=== PATIENT | female | born 1970 | race Two or more races ===

== ENCOUNTER → 2021-09-01 | Outpatient (CLI) | payer SELFPAY ==
[2021-09-05 17:19] LABS: HPV APTIMA, High Risk Negative (Negative)
== END | disposition home or self-care (01) ==
LOC: LABSPEC 12:23
PROVIDERS: Visit Provider Obstetrics & Gynecology
DX: Z12.4 Encounter for screening for malignant neoplasm of cervix (principal)
CPT/HCPCS: 87624; 88175; G0145

== ENCOUNTER 2024-02-10 08:00 | Outpatient (RCR) | payer SELFPAY ==
--- NOTE | 2024-02-10 10:10 | BH.SGPN.GN ---
Behaviors/Verbalizations/Mental Status: [] Eye contact is good. Motor activity is appropriate. Appearance is casual. Speech is Appropriate. Mood is depressed and anxious. Affect is congruent. Thoughts are linear and logical. No evidence of psychosis. Client Response/Progress/Benefit: [] Pt did well to participate in activity and was engaged and attentive during psychoeducation and interactive discussion on coping skills, why people use unhealthy coping skills, how to replace unhealthy coping skills, and internal vs external coping skills. Attentive as peers came up with list of negative coping skills including not asking for help, avoidance, isolating, sleeping, shopping, substance use, and several others. Pt stated she has used isolation and procrastination as an unhealthy coping skill. Recognizes this makes things worse. Stated she has been working on challenging herself to use opposite action. Group discussed the effects of how maladaptive coping skills can impact mental health in a negative way. Benefited from increased understanding of unhealthy coping skills and the need for developing healthy internal and external coping skills. Will continue in IOP to promote healthy coping skills, improve mood stability, and prevent decompensation. Narrative Note: []
--- NOTE | 2024-02-10 11:10 | BH.SGPN.GN ---
Behaviors/Verbalizations/Mental Status: []Pt alert and oriented, casually dressed and groomed. Eye contact good. Motor activity appropriate. Speech within normal limits. Affect congruent, mood depressed. Thoughts linear, logical, no signs of hallucinations or delusions. Client Response/Progress/Benefit: [] Pt responded well to session, taking notes and contributing when prompted. Group discussed the different categories of coping skills which included distraction, emotional release, grounding, self-love, and thought challenging. Pt participated in creating a coping skills ?menu? from the different categories of coping skills. Pt's coping skill menu included: opposite action, catching distortions, connecting in the moment, and exploring new hobbies. Appeared to benefit from increasing repertoire of healthy coping skills. Will continue IOP to prevent decompensation, improve daily functioning, and increase distress tolerance skills. Narrative Note: []
--- NOTE | 2024-02-10 15:51 | BH.COMM ---
Communication Note Communication with Client Communication Note: Met with patient to complete initial paperwork and risk assessment. Reviewed pre-admission intake. No significant changes. Completed [place] Suicide Screening. low to mild risk. Denies suicidal ideation, plan, or intent. Denies hx of attempts or self-harming behavior. No active SI, plan, or intent. Survival ambivalence noted. Protective factors noted as goals for the future and pt's children. Pt reports future orientation. Consulted with Dr. Greene with plan to admit to IOP with dx F33.2
--- NOTE | 2024-02-16 09:05 | BH.SGPN.GN ---
Behaviors/Verbalizations/Mental Status: [] Client alert and oriented, casual appearance. Eye contact good. Motor activity appropriate. Speech within normal limits. Affect congruent, mood euthymic. Thoughts linear, logical, no signs of hallucinations or delusions. Reviewed client's symptom tracker, no risk for suicidal ideation, plan, or intent. Client Response/Progress/Benefit: [] Client responded well to session AEB listening to others and sharing thoughts/feelings. Per daily symptom tracker client reported a 1/5, with 5 being severe, for depression and a 0/5 for anxiety. Client reported mental positive as getting her laundry done yesterday. Client stated additional mental positive as being able to get up early in order to go to work each morning. Appeared to benefit from support from peers. Client shared current stressor as her marriage. Client stated this has been an ongoing stressor for most of their marriage. Will continue IOP tx to improve daily functioning, increase healthy coping skills, and prevent decompensation. Narrative Note: []
--- NOTE | 2024-02-16 10:10 | BH.SGPN.GN ---
Behaviors/Verbalizations/Mental Status: []Pt alert and oriented, neatly dressed and groomed. Eye contact good. Motor activity appropriate. Speech within normal limits. Affect congruent, mood depressed. Thoughts linear, logical, no signs of hallucinations or delusions. Client Response/Progress/Benefit: [] Pt was an active participant in group discussion. Attentive during psychoeducation on the CBT [place] (Thoughts, Behaviors, Emotions). Engaged in group discussion on how thoughts and behaviors can contribute to maintaining adverse feelings, such as depression, anxiety, and irritability. Completed worksheet in which pt identified a thought that is keeping them stuck or is in obstacle to increased mental wellness. The thought that pt identified were ?I make things harder on my family.? Shared this maintains depression and anxiety cycles. Pt benefited from increased awareness of the basis of CBT therapy as well as specific thoughts that are impacting pt's progress. Will continue in IOP to prevent decompensation, improve daily functioning, and increase self-compassion. Narrative Note: []
--- NOTE | 2024-02-16 10:45 | BH.NA_ITS ---
Physical Data Vital Signs Pulse Rate: 72 Blood Pressure: 141/81 Height/Weight Height: 1.63 m Weight:: 113.398 kg Weight in Pounds: 250.0 lbs Current Medication Compliance Medication Compliance Do you take your medication as prescribed?: Yes Nutritional History Appetite Nutritional Instructions: Describe your appetite:: Good Additional nutritional information:: Client states she has had some recent weigh t gain due to increased appetite. Functional Assessment Sleep Pattern Describe any problems with sleeping: Client states she sleeps about 4-6 hours per night. Medical Problems/History Metabolic Conditions Metabolic: Hypothyroidism Pain Assessment Do you have acute or chronic pain?: No Surgical History Surgical History Have you had any surgeries? If so, list type and date:: Yes (anant) Substance Abuse Substance Abuse Please describe substance abuse in the last 30 days:: Client denies alcohol, tobacco or substance use. Client states she drinks 1-3 cups of coffee per day. Mental Status Summary Mental Status Significant Findings/Observations on Appearance and Mood:: Client is alert and oriented x 4. Client is casually groomed with good hygiene. Client is cooperative with assessment. Client makes good eye contact. Client's speech has regular rate and volume. Client has a restricted affect. Client makes logical associations and has normal processing. Client denies delusions/hallucinations. Client denies current SI, but does admit to some SI in the past and some survival ambivalence. Suicide Assessment Suicidal Ideation Are you currently or have you been suicidal in the past?: Yes Suicidal Intentional Rating Scale (SIRS): Suicidal thoughts (past) Physician Notification Past Psychiatric History MH Treatment Hx Past Psychiatric Medications:: Prozac, Wellbutrin, Buspar Age of first mental health symptoms: Client states she was on antidepressants for some time in her 20's, and started taking them again in her 40's until present. Describe (age, circumstance, etc) any past hospitalizations: None. Current providers for mental health treatment (counselor, psychiatrist, employment case manager, etc.): Cora Landin CNP at [facility] for psychiatry Fall Risk Assessment Age Age: Less than 60 Mental Status Mental Status: Willing & able to ask for assistance when needed Physical Status Physical Status: No problems Impairments Impairments: None Elimination Elimination: Continent AND independent Gait or Balance Gait or Balance: Walks independently Hx of Falls History of falls in the past 6 months: No known history Medications/Substances Psychotropics:: Antidepressants Medications/substances used within the past 24 hours or ordered to administer: 1-2 of the medications/substances listed above Total Score Total Points:: 1 RN Summary of Impressions Level of Care How do the client's current symptoms and functional deficits support need for this level of care?: Client was referred to IOP by outpatient psychiatry provider for depression. Client reports having some panic attacks at night recently, the last one being in the last week. Client also reports some anhedonia and decreased motivation. Client states her biggest stressor is her marriage which she states has not been a happy marriage from the start 32 years ago. Client reports feeling like he won't let me leave. Client does report some survival ambivalence. Client denies SI at this time. IOP will promote gains and prevent further decompensation while providing social support and skills training.
[2024-02-16 11:52] VITALS: BP 141/81; PULSE 72
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
--- NOTE | 2024-02-16 12:33 | BH.DR.ITP ---
Initial Treatment Plan Patient Information Visit Information: ADMISSION DATE: EXPECTED LOS: 4-6 weeks Problems/Symptoms Problem #1:: Depression Symptom:: Sadness, hopelessness, worthlessness, anhedonia, biological disruption of sleep, low energy, decreased concentration, passive thoughts of , recent passive suicidal ideation Problem #2:: Anxiety Symptom:: Worry, history of panic attacks, rumination
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
--- NOTE | 2024-02-16 14:45 | BH.MTP ---
Master Treatment Plan Patient Information Program Physician:: Dr. Meaghan Rubalcava Primary Therapist:: Carlita BETANCOURT Psychiatric Diagnoses Psychiatric Diagnoses:: Major depressive disorder, recurrent, severe without psychosis F 33.2; Generalized anxiety disorder Diagnosis Code(s):: F 33.2 Estimated LOS Estimated LOS (in weeks):: 6 Problem/Goal #1 Problem/Goal #1 Stated Goal:: Pt will decrease depressive symptoms, inappropriate guilt, worthlessness, and negative self-talk. Description of Barriers: Pt reports she is unhappy in her marriage and has been for many years, but divorce is not an option. Pt ruminates negatively, has excessive guilt, and has limited support. Additionally, pt has an inconsistent schedule, so it may be challenging for pt to attend [facility] regularly. Functional Impact: Pt is a 53 year-old female with a history of MDD and CHRISTEN who was referred to [facility] by her outpatient psychology lecturer at [facility] for worsening depression. Pt reports her symptoms have been worsening for the past five years due to conflicts within her marriage. Pt feels like I have no freedom to be me and she reports having regret daily. At admission, pt endorses a depressed mood, crying spells, ruminations, erratic appetite, low energy, low motivation, hopelessness, and worthlessness. Pt also endorses thoughts of with passive SI and isolation. Pt's symptoms have been impacting her ability to function at her baseline. Goal Relevant Strengths/Supports: Pt is connected with outpatient counseling and she has a job she enjoys. Objectives Objective #1: Stated Objective: Pt will learn and utilize 2-3 healthy coping strategies to better manage depressive symptoms as shown by a decrease of DMS-5 symptoms for depression. Interventions: Through group and individual sessions, therapist will help pt identify triggers and warning signs of depression and guilt including emotional, physical, and behavioral changes. Therapist will teach pt various coping skills to manage symptoms and give pt tangible resources to use to regulate emotions. Therapist will use cognitive restructuring techniques and help pt gain awareness of negative thoughts that reinforce guilt and depression. Therapist will provide psychoeducation on maintenance cycles and help pt learn ways to break unhealthy maintenance cycles. Therapist will help pt incorporate behavioral activation and assist pt in setting SMART goals. Discharge Criteria: Pt will have met this goal when can report learning and using at least 2 coping skills to manage depressive symptoms and reduce isolation. Additionally, pt will have met this goal when pt's DSM-5 scores for depression decrease. Target Date: 03/23/24 Review Date: 03/02/24 Status: open Objective #2: Stated Objective: Pt will identify at least 2-3 negative self-talk messages used to reinforce negative core beliefs, worthlessness, and isolation and replace thoughts with balanced, realistic messages. Interventions: Therapist will help pt identify distorted, negative beliefs about self and replace with more realistic, affirmative messages. Therapist will use CBT and DBT to help pt increase insight to the connection between thoughts, emotions, and behaviors. Therapist will encourage pt to practice thought challenging. Discharge Criteria: Pt will have achieved this goal when can verbalize at least 2 cognitive distortions and effectively replace those thoughts with affirmative messages. Target Date: 03/23/24 Review Date: 03/02/24 Status: open Problem/Goal #2 Problem/Goal #2 Stated Goal:: Will reduce anxiety and panic symptoms through increasing emotional regulation and distress tolerance skills Description of Barriers: Pt reports she is unhappy in her marriage and has been for many years, but divorce is not an option. Pt ruminates negatively, has excessive guilt, and has limited support. Additionally, pt has an inconsistent schedule, so it may be challenging for pt to attend [facility] regularly. Functional Impact: Pt is a 53 year-old female with a history of MDD and CHRISTEN who was referred to [facility] by her outpatient psychology lecturer at [facility] for worsening depression. Pt reports her symptoms have been worsening for the past five years due to conflicts within her marriage. Pt feels like I have no freedom to be me and she reports having regret daily. At admission, pt endorses a depressed mood, crying spells, ruminations, erratic appetite, low energy, low motivation, hopelessness, and worthlessness. Pt also endorses thoughts of with passive SI and isolation. Pt's symptoms have been impacting her ability to function at her baseline. Goal Relevant Strengths/Supports: Pt is connected with outpatient counseling and she has a job she enjoys. Objectives Objective #1: Stated Objective: Pt will increase ability to manage stressors and anxiety by gaining 2-3 distress tolerance skills. Interventions: Through group and individual therapy, pt will learn various coping skills to help manage stress and anxiety. Therapist will utilize DBT distress tolerance skills to increase awareness and give pt tools to more effectively manage anxiety. Therapist will provide psychoeducation on emotional regulation and help pt identify unhealthy coping skills he wants to change. Discharge Criteria: Pt will have accomplished this goal when can report improved ability to manage stressors and identify at least 2 distress tolerance skills. Target Date: 03/23/24 Review Date: 03/02/24 Status: open Objective #2: Stated Objective: Pt will identify 2-3 anxiety and panic triggers and 2 coping skills to use when feeling anxious or overwhelmed to manage anxiety as shown by reducing DSM-5 scores for anxiety Interventions: Therapist will provide education on anxiety, avoidance behaviors, and maintenance cycles. Therapist will help pt explore personal symptoms and warning signs of anxiety and irritability. Therapist will teach pt coping skills to improve emotional regulation, mindfulness, and distress tolerance to help pt cope with anxiety in the moment. Discharge Criteria: Pt will have accomplished this goal when he can identify at least 2 triggers and report using 2 coping skills to manage anxiety and irritability. Additionally, pt will have accomplished this goal AEB reduction of DSM-5 scores for anxiety. Target Date: 03/23/24 Review Date: 03/02/24 Status: open
--- NOTE | 2024-02-16 14:57 | BH.MDN ---
Multi-Disciplinary Note Note 30-min Individual: Time Started:: 11:30 Date: 02/16/24 Purpose of session/treatment goals addressed:: To gather information on pt's current stressors, symptoms, triggers, history, and tx goals. Another goal was to build rapport and provide emotional support. Eye Contact:: Good Motor Activity:: Appropriate Appearance:: Neat Speech:: Soft Mood:: Anxious and Depressed Affect:: Constricted Thoughts:: Linear, Logical and No evidence of hallucinations/delusions noted Staff Interventions:: rapport building, strengths perspective, treatment planning and goal setting Client Response:: Pt responded well to session, open to meeting with therapist. Pt reports feeling anxious, but hopeful about IOP. Pt has been seeing a therapist for a while now and she finds benefit in talking about her stressors, especially since pt feels little support at home. Pt stated she will not be telling her that she is in IOP because he will not understand it at all. Pt's marriage is her biggest stressor and pt shared she has regretted being since she got . When asked when her relationship was good, pt replied when we were dating. Pt is grateful to have her children and grandchildren from the marriage, but pt has a lot of resentment and sadness within her relationship. Pt stated she feels like she has no freedom and that her , and her sisters, expect pt to just be the he wants me to be. Pt's culture forbids divorce, so pt shared she wants to learn how to just accept and be okay within her marriage. Pt shared she has been trying to be more independent, she got a job and she states she is doing more things without her . Pt has support in her [id number]-mle and one close friend. Pt did not go into detail about her , but pt shared he is controlling. Pt receptive to learning about self-care, acceptance, and distress tolerance while in IOP. Pt shared she hopes to attend more frequently. Risks/Concerns:: Pt denies any suicidal ideations, plan, or intent. Pt denies any thoughts of . Progress Toward Goals/Plan:: Pt new to IOP tx, so limited progress to document. Pt stated she has been in counseling and finds it helpful. Pt shared she is currently working on marital stress issues with her outpatient therapist as this largely contributes to pt's depression and anxiety. Pt's tx goals include reduce rumination, reduce guilt, and find myself within my relationship. Pt will continue IOP tx to prevent decompensation, improve daily functioning, and increase distress tolerance. Time Stopped:: 12:00
--- NOTE | 2024-02-23 09:00 | BH.SGPN.GN ---
Behaviors/Verbalizations/Mental Status: []Client alert and oriented, casual appearance. Eye contact fair. Motor activity appropriate. Speech within normal limits. Affect congruent, mood depressed and anxious. Thoughts linear, logical, no signs of hallucinations or delusions. Reviewed client's symptom tracker, no risk for suicidal ideation, plan, or intent. Client Response/Progress/Benefit: []Client responded well to session AEB listening to others and sharing thoughts/feelings. Client reported mental health positive as engaging in self-care by allowing self to rest while she has been sick. Client stated stressor as having to cancel Thanksgiving because she has been sick and doesn't want to get anyone else sick. Client stated feeling worried this morning. Client became emotional when trying to explain her worry. Appeared to benefit from support from peers. Will continue IOP tx to improve boundary setting, improve healthy coping, and prevent decompensation.
--- NOTE | 2024-02-23 11:15 | BH.SGPN.GN ---
Behaviors/Verbalizations/Mental Status: []Pt alert and oriented, neatly dressed. Eye contact good. Motor activity appropriate. Speech within normal limits. Affect congruent, mood depressed. Thoughts linear, logical, no signs of hallucinations or delusions. Client Response/Progress/Benefit: [] Pt responded well to session AEB Pt listening attentively to others and providing input during group discussion on the pay offs and costs of the different communication styles. Pt able to connect how current communication style impacts mental health. Connected with peers? comments about importance of using assertive communication. Pt did well with practicing being assertive in the group activity and worked with group to identify potential skills for improving communication skills. Pt stated she will practice being assertive by sticking to her boundaries in difficult situations. Pt seemed to benefit from increasing awareness of healthy strategies to improve communication. Will continue IOP tx to prevent decompensation, gain healthy coping skills, and reduce avoidance. Narrative Note: []
--- NOTE | 2024-02-23 14:11 | BH.MDN_ITS ---
Multi-Disciplinary Note Note 45-min Individual: Time Started:: 10:28 Date: 02/23/24 Purpose of session/treatment goals addressed:: To address treatment plan goal #1 obj #2 and goal #2 obj #1 Eye Contact:: Good (tearful throughout) Motor Activity:: Appropriate Appearance:: Neat and Casual Speech:: Appropriate Mood:: Depressed Affect:: Congruent Thoughts:: Linear, Logical and No evidence of hallucinations/delusions noted Staff Interventions:: thought challenging, psychoeducation on: (decisional balance, introduced affirmations), CBT techniques, mindfulness skills (deep breathing) and strengths perspective Client Response:: This therapist met with pt as pt was emotionally dysregulated and requested to meet with someone; however, her regular IOP therapist was unavailable. Pt entered session tearful and struggling to speak as a result. Responded well to engaging in deep breathing exercises with this therapist to regulate herself enough to process current stressor. Shared that her daughter is visiting with her family from [place] and that upon arrival last night her granddaughter acted excited to see pt?s but was reluctant to interact with pt. She explained that this made her feel rejected and as though there is something wrong with her. Noted that her granddaughter typically seems less interested in pt than pt?s and she feels that her finds enjoyment in being the preferred grandparent. Able to work with therapist on identifying evidence that her granddaughter enjoys being around her, recognizing that they have spent time together baking in the past. Pt able to identify that she was more emotionally hurt by her ?s response to this rather than her granddaughter?s behaviors. Pt stated that her marriage is a constant source of distress for pt and she has wanted to end the relationship for some time; however has not followed through with this due to discouragement from her supports as well as due to divorce being discouraged by her galdino. Shared that she wants to be happy and enjoy life but struggles to believe she is able to do so in her current environment. Noted her sisters don?t understand this when pt speaks to them about is as their beliefs on a ?s role within a marriage are different than pt?s. Pt recognizes that she cannot force her to change and therefore must identify what is in her control that she is willing to do to either change her ability to cope and function within the marriage or pursue ending it. Connected with discussion on not making large decisions while upset and taking time to work on improving her own confidence and relationship with herself first. Shared beliefs this will aid in making a more informed decision and better recognizing and advocating for her needs, values, and boundaries. Did well to identify plans to spend time with her [id number] and granddaughter as they are positive supports. Additionally, pt receptive of beginning daily affirmations and was provided with a decisional balance worksheet to complete when she feels ready to further explore her relationship. Risks/Concerns:: Client denies current suicidal ideation, plan, or intention to date. Progress Toward Goals/Plan:: Progress limited due to pt limited attendance as a result of scheduling conflicts. However, limited attendance has made it difficult for pt to gain skills needed, challenge her perspective consistently, and actively work on applying skills in the treatment environment. Pt reports her marriage is the primary source of her mental health issues however pt's is unaware that pt is in treatment and pt is unsure of whether she wants to address her marital issues. This may limit progress in treatment as pt self- worth is directly impacted by her marriage. Pt recommended continued IOP tx to improve mood stability, confidence, and healthy boundaries. Time Stopped:: 11:16
--- NOTE | 2024-03-17 10:10 | BH.SGPN.GN ---
Behaviors/Verbalizations/Mental Status: [] Client alert and oriented, casually dressed and groomed. Eye contact good. Motor activity appropriate. Speech within normal limits. Affect congruent, mood dysthymic and anxious. Thoughts linear, logical, no signs of hallucinations or delusions. Client Response/Progress/Benefit: [] Client was an active participant AEB contributing to discussion, taking notes, and engaging in group activity. Connected with the topic of pitfalls and listened to group discussion on barriers that prevent from choosing a healthier path to mental wellness. Group worked together to identify examples of personal pitfalls. Pt identified personal pitfalls to include: negative thinking, poor boundaries, lack of communication with supports. Client benefited from group as client learned to better identify potential barriers to improving mental health symptoms. Client will continue IOP tx to improve mood stability, promote use of healthy coping skills, and prevent decompensation. Narrative Note: []
== END 2024-02-26 23:59 ==
LOC: BHIOP 08:00
PROVIDERS: PCP Nurse Practitioner Family; Referring Provider Psychiatry & Neurology Psychiatry; Visit Provider Psychiatry & Neurology Psychiatry
DX: F33.2 Major depressive disorder, recurrent severe without psychotic features (principal); F41.1 Generalized anxiety disorder
CPT/HCPCS: S9480; 90832; 90834; 90853

== ENCOUNTER 2024-02-28 07:08 | Outpatient (RCR) | payer SELFPAY ==
[2024-02-27 00:32] VITALS: BP 141/81; PULSE 72
--- NOTE | 2024-02-28 09:05 | BH.SGPN.GN ---
Behaviors/Verbalizations/Mental Status: [] Pt alert and oriented, casually dressed and groomed. Eye contact good. Motor activity appropriate. Speech within normal limits. Affect congruent, mood content. Thoughts linear, logical, no signs of hallucinations or delusions. Reviewed pt?s symptom tracker, no risk for suicidal ideation, plan, or intent 02/28/24 Client Response/Progress/Benefit: [] Pt was an active participant in group discussions. Attentive. Able to identify mental health wins including successfully hosting family Thanksgiving and spending time with her family without conflict. Pt noted being mindful of who she was surrounding herself with and trying to avoid people or conversations that could be triggering for her. Current stressor noted as worrying about her daughter being out of state and , explaining that she has no family where she is currently living. Pt reports encouraging her daughter to reach out if she were to need anything and trying to remind herself that she is an adult and able to care for herself. Benefited from group support, encouragement, and feedback. Will continue in IOP to prevent decompensation, promote mood stability, and continue to improve use of self-compassion/self-advocacy. Narrative Note: []
--- NOTE | 2024-02-28 10:15 | BH.SGPN.GN ---
Behaviors/Verbalizations/Mental Status: [] Client alert and oriented, neatly dressed and groomed. Eye contact good. Motor activity appropriate. Speech within normal limits. Affect constricted, mood euthymic. Thoughts linear, logical, no signs of hallucinations or delusions. Client Response/Progress/Benefit: [] Client was an semi-active participant in group discussions. Attentive during psychoeducation on 4 types of conflict styles (Competing, Collaborating, Avoiding, and Accommodating). Worked with group to define conflict and identify how conflict is helpful. With peers identified barriers to addressing or managing conflict which included:trauma, body language, and cognitive distortions. Benefited from group due to increase insight and awareness of benefits to conflict, conflict styles, and obstacles to managing conflict. Will continue in IOP to increase emotional regulation, gain healthier core beliefs, and increase functioning. Narrative Note: []
--- NOTE | 2024-02-28 14:04 | BH.MDN ---
Multi-Disciplinary Note Note 45-min Individual: Time Started:: 11:20 Date: 02/28/24 Purpose of session/treatment goals addressed:: To work on pt's cognitive dissonance that causes anxiety and depression by using decisional balance and acceptance. Eye Contact:: Good and Fair Motor Activity:: Appropriate Appearance:: Neat Speech:: Appropriate Mood:: Anxious and Depressed Affect:: Congruent Thoughts:: Linear, Logical and No evidence of hallucinations/delusions noted Staff Interventions:: thought challenging, motivational interviewing, CBT techniques, strengths perspective and other (acceptance and decisional balance ) Client Response:: Pt responded well to session, open to meeting with therapist. Pt reports she had a pretty good weekend but that she and her daughter really got into it. Pt stated her daughter has been more emotionally reactive due to being and because they know things aren't good with me and my . Pt shared last week she was ready to leave him but today pt feels that there are not enough benefits to leaving. Pt asked how do I keep my distance from him and have compassion. This led to discussion of boundaries and pt's non-negotiables. Pt shared one boundary she does not want to go back on is being intimate. Pt stated that she gets a strong visceral reaction when her wants touch her. Pt shared this is due to how he treats her, but also because he had an emotional affair. Pt shared I want him to know I won't do that, but I'm not pushing him away forever. Pt was asked what her would need to do for pt to feel safe in the marriage again and pt admitted to herself nothing because I don't love him. Although pt does not love her , she feels there are too many costs of leaving the marriage. One cost is that pt's culture and methodist have very traditional gender roles and pt shared she does not know any other women who feel the way she does. Pt reminded to talk with the supports that do understand and to practice positive self-talk. Pt receptive to working on self-talk for homework and self-compassion. Pt also plans to set a boundary with her daughter. Risks/Concerns:: Pt denies any suicidal ideations, plan, or intent. Pt denies any thoughts of . Progress Toward Goals/Plan:: Pt reports progress in being more independent but she continues to have torn feelings about what to do about her marriage. Pt's attendance is improving, but pt cancels on average about once a week. Pt's symptoms of depression and anxiety are still present. Pt shared she is finding benefit in IOP and gaining skills. Pt will continue IOP tx to increase use of healthy coping skills, improve self-confidence, and reduce intensity of symptoms. Time Stopped:: 12:00
--- NOTE | 2024-03-02 09:00 | BH.SGPN.GN ---
Behaviors/Verbalizations/Mental Status: [] Eye contact is good. Motor activity is appropriate. Appearance is casual. Speech is Appropriate. Mood is anxious. Affect is congruent. Thoughts are linear and logical. No evidence of psychosis. Reviewed daily check in sheet and no reports of suicidal ideations or intent. Client Response/Progress/Benefit: [] Pt participated at times during the group discussions. Attentive. Daily symptom tracker notes 3/5 for depression and anxiety. Reports increased confidence in managing her emotions and thoughts. Utilized free to spend with healthy support which she understands significantly helps her mental health. Progress noted. Benefited from group support, encouragement, and feedback. Will continue in IOP to prevent decompensation, stabilize mood, and increase healthy coping. Narrative Note: []
--- NOTE | 2024-03-02 10:10 | BH.SGPN.GN ---
Behaviors/Verbalizations/Mental Status: [] Pt alert and oriented, casually dressed and groomed. Eye contact good. Motor activity appropriate. Speech within normal limits. Affect congruent, mood anxious. Thoughts linear, logical, no signs of hallucinations or delusions. Client Response/Progress/Benefit: [] Pt participated during small group discussions. Attentive during psychoeducation about defense mechanisms. Showed engagement during small group discussions and helped group identify which defense mechanisms were maladaptive, adaptive, or ?somewhere in the escobar.? Pt worked with small group on identifying how each defense mechanism can impact mental health and gave examples. ?Seemed to benefit from gaining awareness about the different defense mechanisms. Pt to continue IOP tx to improve view of self, challenge negative/distorted thoughts, and prevent decompensation.
--- NOTE | 2024-03-02 11:15 | BH.SGPN.GN ---
Behaviors/Verbalizations/Mental Status: []Pt alert and oriented, casually dressed and groomed. Eye contact good. Motor activity appropriate. Speech within normal limits. Affect congruent, mood content. Thoughts linear, logical, no signs of hallucinations or delusions. Client Response/Progress/Benefit: []Pt responded well to session, participating in activity and small group discussion. Group reviewed the rest of the defense mechanisms and discussed how these are adaptive, maladaptive, or somewhere in the escobar. Pt's defense mechanisms included [id number] and suppression. Pt shared wanting to work on her suppression as pt recognizes she pushes things down when not wanting to face them. Pt listened to plastic sewer teach different skills to help pt?s cope with or change their defense mechanisms. Pt appeared to benefit from gaining insight to the different defense mechanisms and learning coping skills. Pt will continue IOP tx to prevent decompensation, maintain mood stability, and improve self-compassion. Narrative Note: []
--- NOTE | 2024-03-08 09:00 | BH.SGPN.GN ---
Behaviors/Verbalizations/Mental Status: [] Pt alert and oriented, casually dressed and groomed. Eye contact good. Motor activity appropriate. Speech within normal limits. Affect congruent, mood content. Thoughts linear, logical, no signs of hallucinations or delusions. Reviewed pt?s symptom tracker, no risk for suicidal ideation, plan, or intent 03/08/24 Client Response/Progress/Benefit: [] Pt was an active participant in group discussions. Attentive. Able to identify mental health wins including doing well to better understand her boundaries and maintain them when it comes to work. Additional win noted as not letting things bother me so much when it comes to her 's behaviors. Pt reports trying to focus on what she has control over and the healthier supports in her life which has been helpful. Stressor noted as continuing to manage daily responsibilities while struggling with depression. Benefited from group support, encouragement, and feedback. Will continue in IOP to prevent decompensation, promote mood stability, and continue to improve use of thought challenging. Narrative Note: []
--- NOTE | 2024-03-08 11:05 | BH.SGPN.GN ---
Behaviors/Verbalizations/Mental Status: []Client alert and oriented, neatly dressed and groomed. Eye contact good. Motor activity appropriate. Speech within normal limits. Affect congruent, mood euthymic. Thoughts linear, logical, no signs of hallucinations or delusions. Client Response/Progress/Benefit: [] Pt engaged in discussion reviewing different areas of self-care and completing self-assessment of current self-care, as well as providing input throughout discussion. Did well to complete self-care self-assessment worksheet. Pt identified how pt is doing in each category and what self-care activities pt wants to start using. Pt selected physical self-care to begin practicing more consistently. Pt plans to do this by exercising and setting boundaries with herself. Appeared to benefit from completing the self-care evaluation and gaining insights into current self-care practices, as well as identifying areas in which pt would like to improve upon. Pt will continue IOP tx to promote mood stability, increase ability to regulate stress, and improve self-confidence. Narrative Note: []
--- NOTE | 2024-03-08 11:42 | PCM.BH.PN ---
Progress Note Progress Note: History of Present Illness/Interim History: The patient is a 53-year-old , female with a history of depression who is seen in follow-up at the [facility] behavioral health IOP. I last saw the patient 3 weeks ago and she did not want medication changes but agreed to try trazodone for sleep. She states that she only took the trazodone once or twice and it made her too drowsy. Her sleep has improved lately and she is getting 7 hours a night so does not require a medication for sleep at this point. She feels she is benefiting from the IOP and learning valuable skills to help deal with her issues. She describes her mood as less depressed. She still has less crying spells and less hopelessness than before. She still has some passive thoughts of but she denies suicidal ideation and states that her passive thoughts of have decreased somewhat. She denies also homicidal ideation, hallucinations or delusions. Her panic attacks have become less severe lately and she has not had any in the past week. Current Psychiatric Medications: [] Effexor XR 300 mg p.o. daily (on this dose for 1 or 2 years); trazodone 50 mg p.o. nightly taken only twice and it made her too drowsy so she stopped it. Mental Status Examination: [] The patient is a 53-year-old female who is obese and wears glasses and appears normal or a little older than stated age. She is ambulatory with a normal gait and casually dressed and groomed with good hygiene. She has no psychomotor agitation or retardation. Speech is normal rate and rhythm and fluent with no pressure. Eye contact is good. Mood is depressed. Affect is mildly constricted. Thought process is goal-directed and organized. Thought content: There is evidence of passive thoughts of but there is no evidence of suicidal ideation, plan for suicide, thoughts of self-harm, homicidal ideation, hallucinations or delusions. Reality testing is intact. Intelligence is average or above. Judgment is intact. Insight fair and improving. Impulsivity low. Diagnoses: [] 1. Major depressive disorder, recurrent, severe without psychosis 2. Generalized anxiety disorder 3. Perimenopausal with 3 months of amenorrhea 4. Hypothyroidism 5. Primary support issues. Plan: [] The patient will continue the IOP in behavioral health at [facility] as the structure, support, education and group therapy will hopefully prevent worsening of the patient's symptoms. She felt safe during the interview and if it anytime she does not feel safe she agrees to let us know or go to the emergency room. No medication changes were made today as the patient does not wish to take any more medications than she is currently taking. She will continue to follow-up with her outpatient providers and I will see the patient in follow-up while she is in the IOP.
--- NOTE | 2024-03-08 15:13 | BH.TPR ---
Treatment Plan Review Demographics Date of Admission:: 02/10/24 Date of Treatment Plan Review:: 03/15/24 Admitting Diagnoses:: Major depressive disorder, recurrent, severe without psychosis F 33.2; Generalized anxiety disorder Current Diagnoses:: Major depressive disorder, recurrent, severe without psychosis F 33.2; Generalized anxiety disorder Patient Status Patient's Response to Treatment:: Pt has responded well to session AEB consistently attending IOP and engaging in both individual and group therapy sessions. Pt consistently completes homework provided from individual counseling. Pt contributes actively during group discussions, takes notes, appears to listen to others, and engages in group activities. Pt's overall DSM-5 scores have decreased by 50% since admission and she reports finding benefit from the coping skills so far. Pt also reports improving functioning at home and increased confidence in her ability to set and maintain boundaries. Status of Current Problems and Symptoms: Pt's marital stress is pt's biggest contributor to depression and anxiety. Pt reports improved outlook towards her marriage, specifically about things in pt's control. Additional stressors include her children and potentially leaving the scientologist. Pt's symptoms are resolving, but they are still impacting her ability to function at the level she wants. Progress Problem #1: Problem Name:: Depression, hopelessness, negative self-talk. Status of Goals:: Objective 1- complete with ongoing work encouraged. Pt?s scores for depression have decreased since admission by 50%. Pt is working on practicing more self-care and assertive her needs. Objective 2- in progress. Pt is working on self-compassion, dialectical thinking, and challenging negative self-talk. Team Recommendations:: Team recommends continued goals and objectives to reinforce skills and further reduce symptoms. Team recommends pt continue working on being assertive, being more self-compassionate, and practicing self-care through boundary setting. Problem #2: Problem Name:: Anxiety, rumination, panic. Status of Goals:: Objective 1- in progress. Pt is gaining distress tolerance skills and has been working on reducing her mind-reading which helps pt not overcompensate. Objective 2- complete with ongoing work encouraged. Pt?s symptoms have decreased by 67% since admission. Team Recommendations:: Treatment team encourages pt to continue working on distress tolerance skills, verbalizing boundaries, grounding skills, and practicing self-care to reduce stress.
--- NOTE | 2024-03-10 09:00 | BH.SGPN.GN ---
Behaviors/Verbalizations/Mental Status: [] Eye contact is good. Motor activity is appropriate. Appearance is casual. Speech is Appropriate. Mood is euthymic. Affect is full. Thoughts are linear and logical. No evidence of psychosis. Reviewed daily check in sheet and no reports of suicidal ideations or intent. Client Response/Progress/Benefit: [] Pt participated at times during the group discussions. Attentive. Daily symptom tracker notes 04/02 for depression, anxiety, and irritability. Mental health wins include completing various tasks and staying engaged. Struggling with poor sleep. She reports to benefit a great deal from transporting [employer] as it has decreased her isolation and increased socialization. Utilizing skills. Practicing acceptance. Progress noted. Benefited from group support, encouragment, and feedback. Will continue in IOP to prevent decompensation, stablize mood, and increase healthy coping. Narrative Note: []
--- NOTE | 2024-03-10 10:05 | BH.SGPN.GN ---
Behaviors/Verbalizations/Mental Status: []Pt alert and oriented, casually dressed and groomed. Eye contact good. Motor activity appropriate. Speech within normal limits. Affect congruent, mood euthymic. Thoughts linear, logical, no signs of hallucinations or delusions. Client Response/Progress/Benefit: [] Pt responded well to session, attentive and engaged. Group participated in the discussion defining stigma as well as what stigma has kept pt's from doing in their lives. Pt stated mental health stigma has led pt to ?become invisible and not want to be seen or heard.? Pt worked with peers to begin discussion of what reinforces stigma, both socially and internally, and this was discussed further in the next group. Pt appeared to benefit from learning about the different types of stigma as well as gaining awareness of how stigma has personally impacted pt. Pt will continue IOP tx to promote the use of healthy coping skills, reduce negative self-talk, and increase self-confidence. Narrative Note: []
--- NOTE | 2024-03-10 11:05 | BH.SGPN.GN ---
Behaviors/Verbalizations/Mental Status: []Pt alert and oriented, casually dressed and groomed. Eye contact good. Motor activity appropriate. Speech within normal limits. Affect congruent, mood anxious. Thoughts linear, logical, no signs of hallucinations or delusions. Client Response/Progress/Benefit: [] Pt engaged participant AEB participating in the activity, providing input during small group discussion, and listening attentively to others. Pt appeared to connect with discussion in the benefits of addressing mental health stigma which included: improved relationships, increased willingness to seek help, increased happiness, and improved confidence. Group brainstormed strategies to combat social and perceived stigma. Pt identified that they can contribute to stigma by shutting down and not advocating for themselves. Appeared to benefit from increasing awareness of strategies to combat stigma. Pt is to continue IOP to increase consistent use of healthy coping skills, improve confidence, and prevent decompensation.
--- NOTE | 2024-03-10 12:10 | BH.MDN_ITS ---
Multi-Disciplinary Note Note 30-min Individual: Time Started:: 11:10 Date: 03/10/24 Purpose of session/treatment goals addressed:: To work on cognitive distortions that reinforce anxiety, depression, and low self-esteem. Eye Contact:: Good Motor Activity:: Appropriate Appearance:: Neat Speech:: Appropriate Mood:: Euthymic Affect:: Full Thoughts:: Linear, Logical and No evidence of hallucinations/delusions noted Staff Interventions:: thought challenging, psychoeducation on: (cognitive distortions), CBT techniques (reviewed common cognitive distortions), discharge planning, strengths perspective, reviewed DSM-5 and goal setting (exposure goal set for next session) Client Response:: Pt responded well to session, open to meeting with therapist. Pt shared she is doing pretty, mostly good which pt describes as she is feeling better, but she is still struggling with anxiety. Pt stated this morning she was running late and when she came into process group she felt that people didn't know what to make of me. Pt shared she often worries that because I was raised [place] that people think I'm judging them. This led to a discussion of the common cognitive distortions and pt and therapist reviewed them in the [facility] binder. Pt connected with all of them, but mostly with shoulds, personalization, and jumping to conclusions. Pt reported she assumes people bosom presser her so she withdraws or does not initiate conversation. Pt also feels that it is her responsibility to make other people happy, which pt shared was reinforced by her and some of her sisters due to their cultural beliefs. Pt receptive to practicing thought challenging in session and worked on a thought log. Pt also learned techniques to combat distortions when she notices them. Pt receptive to making an exposure goal of initiating conversation with one person at [facility] because pt has been wanting to do that but I haven't had the nerve. Risks/Concerns:: Pt denies any suicidal ideations, plan, or intent. Pt denies any thoughts of . Progress Toward Goals/Plan:: Pt reports progress in her self-confidence and motivation. Pt has been able to get things done around the house and she is feeling more capable to be independent. Pt stated I still don't feel where I want to be, but I'm getting there. Martial stress is still pt's biggest stressor, but pt also feels that her negative self-talk impacts her as well. Pt will continue [facility] tx to promote mood stability, reduce negative thinking patterns, and further improve daily functionng. Time Stopped:: 11:45
--- NOTE | 2024-03-15 09:00 | BH.SGPN.GN ---
Behaviors/Verbalizations/Mental Status: [] Client alert and oriented, casual appearance. Eye contact fair. Motor activity appropriate. Speech within normal limits. Affect congruent, mood euthymic. Thoughts linear, logical, no signs of hallucinations or delusions. Reviewed client's symptom tracker, no risk for suicidal ideation, plan, or intent. Client Response/Progress/Benefit: [] Client responded well to session AEB listening to others and sharing thoughts/feelings. Per daily symptom tracker client reports a 2/5 for depression and 1/5 for anxiety. Client reported mental positive as getting to IOP on time despite having extra tasks to get done this morning. Client stated additional mental health positives as going to get coffee with a friend, going to make candy with sister today, and setting boundaries. Client reported current stressor getting through the holidays. Appeared to benefit from support from peers. Will continue IOP tx to continue utilization of healthy coping skills consistently, challenge distorted and negative thoughts, and prevent decompensation. Narrative Note: []
--- NOTE | 2024-03-15 10:10 | BH.SGPN.GN ---
Behaviors/Verbalizations/Mental Status: [] Eye contact is good. Motor activity is appropriate. Appearance is casual. Speech is Appropriate. Mood is euthymic. Affect is full. Thoughts are linear and logical. No evidence of psychosis. Client Response/Progress/Benefit: [] Pt participated at times during the interactive group discussions. Along with peers contributed to interactive discussion on defining what a boundary is in mental health. Pt along with peers identified challenges to setting boundaries which included; people pleasing, possible conflict, possible abandonment, fear of rejection, fear of loss, fear people won't respect the boundary, etc. Pt worked well in small group in which they identified different types of boundaries (material, sexual, intellectual, physical, emotional) and provided examples. Pt benefited from increased awareness and insight on the challenges to setting boundaries and the types of boundaries. Will continue in IOP to prevent decompensation, increase healthy coping, and improve functioning. Narrative Note: []
--- NOTE | 2024-03-15 12:41 | BH.MDN ---
Multi-Disciplinary Note Note 30-min Individual: Time Started:: 11:40 Date: 03/15/24 Purpose of session/treatment goals addressed:: To work on self-confidence in boundary setting and to review homework from last session. Eye Contact:: Good and Fair Motor Activity:: Appropriate Appearance:: Neat Speech:: Soft Mood:: Euthymic and Anxious Affect:: Congruent Thoughts:: Linear, Logical and No evidence of hallucinations/delusions noted Staff Interventions:: thought challenging, motivational interviewing, CBT techniques, mindfulness skills, strengths perspective and other (gave pt the personal bill of rights worksheet.) Client Response:: Pt responded well to session, open to meeting with therapist. Pt reported she was thinking about distortions which was homework from last session. Pt has been trying to catch her negative thoughts and reframe them. Pt shared she has been benefitting from the group topics which today's topic was boundaries. Pt stated she has struggled with years to set boundaries due to her guilt, relationship with her , and people pleasing. However, pt shared she is becoming more independent and she has been setting a lot of boundaries with her . Pt shared she wants to set another boundary, which pt feels will be difficult and she wants to wait until after [facility]. Pt wants to tell her that she wants to leave their protestant and she knows this may come with push back. Pt shared I'm just going to tell him that if he wants to keep going, great, but I'm not. Pt is not sure where she wants to go, but she stated she realized she needs to leave because she notices that when she attends protestant she significantly decompensates the next day. Pt stated she spends the day in bed and is very depressed. Pt receptive to the personal bill of rights and was encouraged to read through those whenever her confidence about this boundary waivered. Risks/Concerns:: No report of SI or thoughts of . Progress Toward Goals/Plan:: Pt is making progress towards her tx goals AEB pt's DSM-5 scores reducing by 50% with depression decreasing by 50% and anxiety decreasing by 67%. Pt reports she is using skills outside IOP such as being assertive, self-care, and thought challenging. Pt reports benefitting from the group structure and support. Pt will continue IOP tx to promote mood stability and further reduce symptoms. Time Stopped:: 12:10
--- NOTE | 2024-03-17 09:00 | BH.SGPN.GN ---
Behaviors/Verbalizations/Mental Status: [] Eye contact is good. Motor activity is appropriate. Appearance is casual. Speech is Appropriate. Mood is euthymic. Affect is full. Thoughts are linear and logical. No evidence of psychosis. Reviewed daily check in sheet and no reports of suicidal ideations or intent. Client Response/Progress/Benefit: [] Pt participated at times during the group discussions. Attentive. No significant distress noted on symptom tracker. She was vulnerable with her family this morning and shared that she has been attending [facility] for her mental health. Reports they were supportive which was helpful. ? I opened up to them about my mental health?. ? This is who I am and I?m tired of putting on a face?. Increased confidence and decreased stigma. Benefited from group support, encouragement, and feedback. Will continue in IOP to prevent decompensation, stabilize mood, and increase healthy coping. Narrative Note: []
--- NOTE | 2024-03-17 11:10 | BH.SGPN.GN ---
Behaviors/Verbalizations/Mental Status: []Client alert and oriented, neatly dressed and groomed. Eye contact good. Motor activity appropriate. Speech within normal limits. Affect congruent, mood euthymic and anxious. Thoughts linear, logical, no signs of hallucinations or delusions. Client Response/Progress/Benefit: [] Pt receptive of session, engaged throughout AEB Pt actively listening and contributing to discussion as well as taking notes.? Pt participated in the experiential activity and did well to communicate ideas with peers and manage emotions. Pt attentive as group processed how the emotions and perspective of the group impacted the activity. Group worked together to identify different coping skills to help manage pitfalls. Pt identified a pitfall they struggle with as over-compensating and negative self-talk. Pt plans to work on their pitfall by taking practicing reframing her negative thoughts. Benefited from identifying personal pitfalls and strategies to overcome these pitfalls. Pt will continue IOP tx to promote mood stability, reduce negative thinking patterns, and improve self-care. Narrative Note: []
--- NOTE | 2024-03-23 09:05 | BH.SGPN.GN ---
Behaviors/Verbalizations/Mental Status: [] Eye contact is good. Motor activity is appropriate. Appearance is casual. Speech is Appropriate. Mood is euthymic. Affect is full. Thoughts are linear and logical. No evidence of psychosis. Reviewed daily check in sheet and no reports of suicidal ideations or intent. Client Response/Progress/Benefit: [] Pt participated at times during the group discussions. Attentive. Daily symptom tracker notes 04/02 for depression and agitation. I got through xmas without any major meltdowns. Shared with the group skills that she used during the holidays. Working on letting go of strict expectations and attempting to control others. Shared how she would often feel very rushed and overwhelmed during the holidays feeling as she was responsible for completing all the tasks. This year was able to trust others to help which allowed her to be in the moment. Progress noted. Benefited from group support, encouragement, and feedback. Will continue in IOP to prevent decompensation, stabilize mood, and improve functioning. Narrative Note: [] Behaviors/Verbalizations/Mental Status: [] Eye contact is good. Motor activity is appropriate. Appearance is casual. Speech is Appropriate. Mood is euthymic. Affect is full. Thoughts are linear and logical. No evidence of psychosis. Reviewed daily check in sheet and no reports of suicidal ideations or intent. Client Response/Progress/Benefit: [] Pt participated at times during the group discussions. Attentive. Daily symptom tracker notes 04/02 for depression and agitation. I got through xmas without any major meltdowns. Shared with the group skills that she used during the idays. Working on letting go of strict expectations and attempting to control others. Shared how she would often feel very rushed and overwhelmed during the holidays feeling as she was responsible for completing all the tasks. This year was able to trust others to help which allowed her to be in the moment. Progress noted. Benefited from group support, encouragement, and feedback. Will continue in IOP to prevent decompensation, stabilize mood, and improve functioning. Narrative Note: []
--- NOTE | 2024-03-23 11:10 | BH.SGPN.GN ---
Behaviors/Verbalizations/Mental Status: [] Pt alert and oriented. Appearance is neat. Eye contact good. Motor activity appropriate. Speech within normal limits. Affect constricted, mood anxious. Thoughts linear, logical, no signs of hallucinations or delusions. Client Response/Progress/Benefit: [] Pt was engaged during discussion and experiential activity. Completed the worksheet challenging them to develop a personal SMART goal. Pt chose a SMART goal related to losing weight which she believes will make me feel better about myself. Identified obstacles and barriers which included her love of for, social gathering, and eating out. Benefited from this group by developing a short-term SMART goal related to mental health. Will continue IOP to prevent decompensation, increase healthy coping, and maintain safety. Narrative Note: []
--- NOTE | 2024-03-23 12:18 | BH.MDN_ITS ---
Multi-Disciplinary Note Note 30-min Individual: Time Started:: 10:15 Date: 03/23/24 Purpose of session/treatment goals addressed:: To review progress, discuss aftercare, and process current stressors. Eye Contact:: Good Motor Activity:: Appropriate Appearance:: Neat Speech:: Appropriate Mood:: Euthymic and Anxious Affect:: Congruent Thoughts:: Linear, Logical and No evidence of hallucinations/delusions noted Staff Interventions:: thought challenging, motivational interviewing, CBT techniques, mindfulness skills, discharge planning and strengths perspective Client Response:: Pt responded well to session, open to meeting with therapist. Pt reports feeling more positive lately and she shared she had a good holiday. Pt plans to tell her that she wants to leave the temple, but pt is still not sure how she wants to address this. Pt receptive to options and pt feels she will wait until after the holidays to do this. Pt shared she has been really enjoying groups and she is anxious about not having groups. Discussed other things pt could get involved in such as women's groups, [facility], and aftercare at [facility]. Pt reports she would benefit from attending a group after she graduates from [facility] as pt has numerous ongoing stressors. Pt stated aside from her , pt and her daughter has been having more conflict. Pt shared she wants to address it with her daughter so they can try and mend their relationship. Pt plans to do this over the phone this week. Risks/Concerns:: Pt denies any suicidal ideations, plan, or intent. Pt denies any thoughts of . Progress Toward Goals/Plan:: Pt continues to report improvement in mood and she reports benefitting from IOP. Pt's symptoms continue to decrease, but she feels she is still not where I want to be. Pt reported that although she is less anxious and depressed, there are still stressors in her life that she needs support navigating. Pt will continue IOP tx to promote mood stability, increase distress tolerance, and improve self-compassion. Time Stopped:: 10:40
--- NOTE | 2024-03-24 09:00 | BH.SGPN.GN ---
Behaviors/Verbalizations/Mental Status: [] Eye contact is good. Motor activity is appropriate. Appearance is casual. Speech is Appropriate. Mood is euthymic. Affect is full. Thoughts are linear and logical. No evidence of psychosis. Reviewed daily check in sheet and no reports of suicidal ideations or intent. Client Response/Progress/Benefit: [] Pt participated at times during the group discussions. Attentive. Remains active and is completing responsibilities in and out of the house. Shared recent social connections and how they are benefiting her mental health. Also discussed stressors and some recent obstacles and challenges with negative thoughts and feeling stuck in certain parts of her life. Progress noted. Benefited from group support, encouragement, and feedback. Will continue in IOP to prevent decompensation, increase healthy coping, and improve functioning Narrative Note: []
--- NOTE | 2024-03-24 10:10 | BH.SGPN.GN ---
Behaviors/Verbalizations/Mental Status: []Eye contact is fair. Motor activity is appropriate. Appearance is casual. Speech is Appropriate. Mood is anxious. Affect is congruent. Thoughts are linear and logical. No evidence of psychosis. Client Response/Progress/Benefit: [] Pt was engaged and participating throughout, providing input and taking notes. Participated in an interactive discussion on defining anxiety and identifying cognitive and physiological symptoms of anxiety. The group discussed the role of anxiety on isolation, avoidance, and who this emotion impacts their ability to start and complete activities/goals. Pt identified their physical/physiological signs of anxiety is she becomes numb all over. Benefited from increased awareness and insight on anxiety and its impact. Will continue in IOP to improve daily functioning, increase consistent use of healthy coping skills, and prevent decompensation.
--- NOTE | 2024-03-24 11:10 | BH.SGPN.GN ---
Behaviors/Verbalizations/Mental Status: []Pt alert and oriented, casually dressed and groomed. Eye contact good. Motor activity appropriate. Speech within normal limits. Affect congruent, mood anxious. Thoughts linear, logical, no signs of hallucinations or delusions. Client Response/Progress/Benefit: [] Pt was an active participant AEB pt providing input and listening attentively to peers. Attentive during psychoeducation on mindfulness coping skills and their impact on reducing anxiety and improving overall mental health wellness. Group was able to identify self-soothing and mind-based coping skills which included: 5-senses, meditation, deep breathing, TIPP, thought challenging, categories, and progressive muscle relaxation. Pt also participated with peers in practicing mindfulness skills in session including deep breathing. Pt would like to work on deep breathing and categories to manage anxiety. Appeared to benefit from increasing repertoire of anxiety reduction skills. Pt will continue in IOP tx to promote mood stability, further decrease intensity of symptoms, and improve self-confidence. Narrative Note: []
--- NOTE | 2024-03-27 09:05 | BH.SGPN.GN ---
Behaviors/Verbalizations/Mental Status: [] Eye contact is good. Motor activity is appropriate. Appearance is casual. Speech is Appropriate. Mood is euthymic. Affect is full. Thoughts are linear and logical. No evidence of psychosis. Reviewed daily check in sheet and no reports of suicidal ideations or intent. Client Response/Progress/Benefit: [] Pt participated at times. Attentive. Daily symptom tracker notes 2/5 for depression and 1/5 for anxiety. ? I?m keeping it even-keeled?. Shared have being social and ?getting out of the house? have been very important for her mental health. Overall reports progress and stability. Benefited from group support, encouragement, and feedback. Will continue in IOP to prevent decompensation, stabilize mood, and increase healthy coping. Narrative Note: []
--- NOTE | 2024-03-27 10:10 | BH.SGPN.GN ---
Behaviors/Verbalizations/Mental Status: []Pt alert and oriented, casually dressed and groomed. Eye contact fair. Motor activity appropriate. Speech within normal limits. Affect congruent, mood anxious. Thoughts linear, logical, no signs of hallucinations or delusions. Client Response/Progress/Benefit: [] Pt was attentive during psychoeducation and participated in group activity. Group discussed what contributes to a person?s perspective and how perspective can positively or negatively impact mental health treatment. Pt reflected on their perspective today and how it is impacting them. Pt shared her perspective is in the middle of positive and negative in which she is struggling with applying skills, but sill trying. Pt appeared to benefit from increasing awareness of different perspectives and how they can affect mental health. Pt will continue IOP tx to improve confidence, challenge negative thoughts, and prevent decompensation.
--- NOTE | 2024-03-27 11:15 | BH.SGPN.GN ---
Behaviors/Verbalizations/Mental Status: []Pt alert and oriented, casually dressed and groomed. Eye contact good. Motor activity appropriate. Speech within normal limits. Affect congruent, mood content. Thoughts linear, logical, no signs of hallucinations or delusions. Client Response/Progress/Benefit: []Pt was attentive and contributed to group discussion. Pt worked with group to identify strategies that can help with challenging negative perspective. Pt stated she can remind self to use dialectical thinking skill as a way to challenge negative perspective. Pt completed strengths exploration worksheet, identifying personal strengths of honesty, common sense, and independence. Pt able to acknowledge how these strengths are helping pt and can continue to help pt in mental health journey. Benefited from identifying personal strengths and strategies for perspective challenging. Pt will continue IOP tx to continue practice healthy coping skills, build self-care, and prevent decompensation. Narrative Note: []
--- NOTE | 2024-03-28 09:05 | BH.SGPN.GN ---
Behaviors/Verbalizations/Mental Status: [] Pt alert and oriented, casually dressed and groomed. Eye contact good. Motor activity appropriate. Speech within normal limits. Affect congruent, mood depressed. Thoughts linear, logical, no signs of hallucinations or delusions. Reviewed pt?s symptom tracker, no risk for suicidal ideation, plan, or intent 03/28/24 Client Response/Progress/Benefit: [] Pt was an active participant in group discussions. Attentive. Able to identify mental health wins including taking her trash out and making it to group today despite not wanting to leave to house this morning. Noted that she has been struggling with motivation and not wanting to be around people this morning, but was able to use opposite action and remind herself of the benefits to get to group. Share low motivation is her current stressor and identified small goals will help with improving motivation throughout day. Benefited from group support, encouragement, and feedback. Will continue in IOP to prevent decompensation, promote mood stability, and continue to improve use of thought challenging. Narrative Note: []
--- NOTE | 2024-03-28 10:10 | BH.SGPN.GN ---
Behaviors/Verbalizations/Mental Status: [] Eye contact is fair. Motor activity is appropriate. Appearance is casual. Speech is Appropriate. Mood is anxious. Affect is congruent. Thoughts are linear and logical. No evidence of psychosis. Client Response/Progress/Benefit: [] Pt was an active participant in group discussions. Attentive during psychoeducation. Contributed during interactive discussions in which peers attempted to define crisis. Group identified crisis examples. Group also worked together to identify warning signs and unhealthy responses to crisis which included shutting down, isolation, avoidance, over-thinking, disordered eating, and self-harm. Pt identified top 3 warning signs as: increased negative thinking, crying more frequently, and difficulty concentrating. Benefited from increased understanding of crisis and awareness of personal responses to crisis. Pt will continue IOP tx to improve boundary setting, improve view of self, and prevent decompensation.
--- NOTE | 2024-03-28 11:15 | BH.SGPN.GN ---
Behaviors/Verbalizations/Mental Status: []Pt alert and oriented, appropriate grooming/appearance. Eye contact fair. Motor activity appropriate. Speech within normal limits. Affect congruent, mood dysthymic. Thoughts linear, logical, no signs of hallucinations or delusions. Client Response/Progress/Benefit: [] Pt was an active participant in group discussions. Attentive during psychoeducation. In small group pt along with peers developed an active plan for their crisis warning signs. Pt identified three crisis warning signs as well as an action plan for each. One crisis warning sign was increased crying spells. Pt identified strategies to help with this such as: focusing on good things, spending time with family, and practicing self-compassion. Benefited from increased awareness of crisis warning signs and by developing crisis intervention strategies. Will continue in IOP to reduce negative thinking patterns, improve self-confidence, and reduce isolation. Narrative Note: []
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
== END 2024-03-28 23:59 ==
LOC: BHIOP 07:08
PROVIDERS: PCP Nurse Practitioner Family; Referring Provider Psychiatry & Neurology Psychiatry; Visit Provider Psychiatry & Neurology Psychiatry
DX: F33.2 Major depressive disorder, recurrent severe without psychotic features (principal); F41.1 Generalized anxiety disorder
CPT/HCPCS: S9480; 90832; 90834; 90853

== ENCOUNTER 2024-03-30 09:00 | Outpatient (RCR) | payer SELFPAY ==
[2024-03-29 00:19] VITALS: BP 141/81; PULSE 72
--- NOTE | 2024-04-04 09:05 | BH.SGPN.GN ---
Behaviors/Verbalizations/Mental Status: [] Eye contact is good. Motor activity is appropriate. Appearance is casual. Speech is Appropriate. Mood is euthymic. Affect is full. Thoughts are linear and logical. No evidence of psychosis. Reviewed daily check in sheet and no reports of suicidal ideations or intent. Client Response/Progress/Benefit: [] Pt participated at times during the group discussion. Attentive. Daily symptom tracker notes 04/02 for depression and irritability. ?Pt noted mental health win associated with no overwhelming anxiety or panic yesterday. She shared the stressful triggers and thoughts however was able to utilize skills. Notes increased confidence in herself over the past several weeks. Progress noted. Benefited from group support, encouragement, and feedback. Will continue in IOP to maintain gains and prevent decompensation Narrative Note: []
--- NOTE | 2024-04-04 10:10 | BH.SGPN.GN ---
Behaviors/Verbalizations/Mental Status: [] Eye contact is fair. Motor activity is appropriate. Appearance is casual. Speech is Appropriate. Mood is anxious. Affect is congruent. Thoughts are linear and logical. No evidence of psychosis. Client Response/Progress/Benefit: [] Pt was an active participant during group discussions and group activities. This portion of group was very psychoeducation heavy and pt was attentive during psychoeducation. Engaged during activity in which they identified which type of foods (i.e. carbs, sugar, salt, fast food, caffeine, etc) they seek out when sad, tired, angry, stressed, anxious, etc. Pt was able to identify the impact that certain foods have on their mental health through group example which was beneficial. Benefited from increased awareness of the connection between nutrition and mental health. Will continue in IOP to improve confidence, challenge negative thoughts, and prevent decompensation.
--- NOTE | 2024-04-04 14:32 | BH.MDN_ITS ---
Multi-Disciplinary Note Note 30-min Individual: Time Started:: 11:10 Date: 04/04/24 Purpose of session/treatment goals addressed:: To discuss discharge and review progress. Another goal was to identify strategies to maintain progress. Eye Contact:: Good Motor Activity:: Appropriate Appearance:: Neat Speech:: Appropriate Mood:: Euthymic and Anxious Affect:: Congruent Thoughts:: Linear, Logical and No evidence of hallucinations/delusions noted Staff Interventions:: thought challenging, CBT techniques, discharge planning and strengths perspective Client Response:: Pt responded well to session, open to meeting with therapist. Pt shared she is doing well and that she told her she will not be returning to their rastafarian. Pt has been wanting to address this with her for the past few weeks, but this weekend pt stated I just did it. Pt shared her was not happy with her, but he will be going to [place] for two weeks so at least I'll have alone time. Pt confined in friends and support prior to setting this boundary and pt feels confident about this. Pt is looking for a new rastafarian that is not cliquey but she shared she is in no [place]rig[place]. Pt reflected on her progress while in [facility], especially with challenge perspective and setting boundaries. Pt feels like in because of her situation with her marriage I'll probably need therapy for life but pt shared feeling more confident about her ability to manage emotions and practice self-care. Pt wants to participate in the [facility] aftercare groups and would like to discharge next week. Risks/Concerns:: Pt denies any suicidal ideations, plan, or intent. Pt denies any thoughts of . Progress Toward Goals/Plan:: Pt continues to make progress towards her IOP goals and is on track to discharge from [facility] next week. Pt reports stressors at home are still present, but pt is confident in her boundaries. Pt reports improved mood most days and she is looking into attending a new rastafarian. Pt will continue IOP tx for one more week to reinforce healthy coping skills and establish aftercare. Time Stopped:: 11:30
--- NOTE | 2024-04-07 09:05 | BH.SGPN.GN ---
Behaviors/Verbalizations/Mental Status: [] Eye contact is good. Motor activity is appropriate. Appearance is casual. Speech is Appropriate. Mood is euthymic. Affect is full. Thoughts are linear and logical. No evidence of psychosis. Reviewed daily check in sheet and no reports of suicidal ideations or intent. Client Response/Progress/Benefit: [] ?Pt participated at times during the group discussions. Attentive. Limited distress noted on daily symptom tracker. ? I?m here?. She is maintain her responsibilities and getting significant benefits. Emotion for today is ?neutral?. Feels that her mental health is stabilizing however ? I still struggle?. Increased confidence in herself and her skills. Progress noted. Benefited from group support, encouragement, and feedback. Will continue in IOP to maintain support, stabilize mood, and increase healthy coping. Narrative Note: []
--- NOTE | 2024-04-07 10:10 | BH.SGPN.GN ---
Behaviors/Verbalizations/Mental Status: [] Eye contact is good, at times looking at phone. Motor activity is appropriate. Appearance is casual. Speech within normal limits. Mood is content. Affect is congruent. Thoughts are linear and logical. No evidence of psychosis. ? ? Client Response/Progress/Benefit: [] Client was an active participant in group discussion and experiential activity. Attentive during psychoeducation on resilience and provided input throughout. Participated in interactive discussion with peers on the definition of resilience and where it comes from. Group identified that resiliency can be impacted by; past experiences, upbringing, and current mental health state. Group also worked together to identify the benefits of being resilient and how it is related to mental health. Reflected on own use of resilience throughout various hardships she has encountered. Able to relate experiential activity of group juggle to topics of resilience. Worked with peers in small group in which they identified factors that contribute to resilience. Benefited from increased awareness of resilience and the factors that contribute to building resilience. Will continue in IOP tx today to increase healthy thought patterns and further promote mood stability. Narrative Note: []
--- NOTE | 2024-04-07 11:15 | BH.SGPN.GN ---
Behaviors/Verbalizations/Mental Status: []Pt alert and oriented, neatly dressed and groomed. Eye contact good. Motor activity appropriate. Speech within normal limits. Affect congruent, mood anxious. Thoughts linear, logical, no signs of hallucinations or delusions. Client Response/Progress/Benefit: [] Pt responded well to session AEB completing the resilience worksheet provided. Pt actively participated in the discussion and worked cooperatively with group to identify strategies to enhance each of the components discussed. Pt reports belief they already use resilience trait of ?making connections, moving towards goals, and keeping things in perspective.? Pt discussed that they could work on maintaining a hopeful outlook by reminding herself that ?even if I don?t like something, it?s not the end of the world.? Pt seemed to benefit from discussing strategies for improving personal resilience and identifying resilience traits Pt already possesses. Will continue IOP tx to reinforce healthy coping skills and increase self-compassion. Narrative Note: []
--- NOTE | 2024-04-10 09:00 | BH.SGPN.GN ---
Behaviors/Verbalizations/Mental Status: [] Eye contact is good. Motor activity is appropriate. Appearance is casual. Speech is Appropriate. Mood is euthymic. Affect is full. Thoughts are linear and logical. No evidence of psychosis. Reviewed daily check in sheet and no reports of suicidal ideations or intent. Client Response/Progress/Benefit: [] Pt participated at times during the group discussion. Attentive. ? I?m here on time?. Reports that she struggled at times with her mental health over the weekend however the intensity, frequency, and severity of struggles has improved over the past several weeks. Reframing, challenging, and acceptance have been helpful strategies. ? Thoughts are just thoughts not facts?. Progress noted. Benefited from group support, encouragement, and feedback. Will continue in IOP to prevent decompensation, stabilize mood, and improve functioning Narrative Note: []
--- NOTE | 2024-04-10 10:10 | BH.SGPN.GN ---
Behaviors/Verbalizations/Mental Status: []Client alert and oriented, casually dressed and groomed. Eye contact good. Motor activity appropriate. Speech within normal limits. Affect congruent, mood content. Thoughts linear, logical, no signs of hallucinations or delusions. Client Response/Progress/Benefit: []Pt responded well to session AEB actively participating throughout group. Pt was attentive throughout group activity discussing famous individuals and how they overcame failure to be successful. Pt helped group identify how fear of failure can impact mental health and relationships. Pt personally identified fear of failure has led to pt to not share her ideas and stay in unhappy situations. Participated in experiential activity, working with group members to problem solve. Appeared to benefit from increased knowledge of what causes fear of failure and how it impacts people. Will continue IOP tx to promote mood stability, reinforce use of healthy coping skills, and improve self-compassion. Narrative Note: []
--- NOTE | 2024-04-10 11:10 | BH.SGPN.GN ---
Behaviors/Verbalizations/Mental Status: []Pt alert and oriented, casually dressed and groomed. Eye contact fair. Motor activity appropriate. Speech within normal limits. Affect congruent, mood anxious. Thoughts linear, logical, no signs of hallucinations or delusions. Client Response/Progress/Benefit: [] Pt responded well to session, engaged in the experiential activity and attentive throughout group processing. Pt reported fear of failure has kept pt from standing up for herself. Pt completed fear of failure worksheet and was able to identify thoughts and behaviors that reinforce personal fear of failure. Pt participated in small group discussion regarding strategies to overcome fear of failure. Identified wanting to work on being kind to self by practicing self-compassion and listening to self. Appeared to benefit from increased knowledge of strategies to combat fear of failure and gaining self-awareness. Pt will continue IOP tx to challenge distorted thoughts, improve healthy coping skills, and prevent decompensation.
--- NOTE | 2024-04-11 09:29 | BH.IGGP_ITS ---
Aftercare Plan Demographics Treatment End Date:: 04/14/24 Psychiatrist:: Meaghan Rubalcava Psychiatrist Office #:: [phone] PHP/IOP Therapist:: Carlita Richardson Therapist Phone #:: [phone] Medications Home Medications levothyroxine 75 mcg tablet 75 mcg PO DAILY 02/16/24 venlafaxine 150 mg capsule,extended release 24 hr (Effexor XR) 300 mg PO DAILY 02/16/24 azithromycin 250 mg tablet (Zithromax Z-Александр) See Rx Instructions PO .COMPLEX #6 tabs 02/21/24 dextromethorphan-guaifenesin 30 mg-600 mg tablet extended [id number] hr 1 tab PO Q12H PRN cough #14 tabs 02/21/24
--- NOTE | 2024-04-11 09:29 | BH.AFTERPLAN ---
Aftercare Plan Demographics Treatment End Date:: 04/14/24 Psychiatrist:: Meaghan Rubalcava Psychiatrist Office #:: [id number] [facility]/IOP Therapist:: Carlita Richardson Therapist Phone #:: [phone] Medications Home Medications levothyroxine 75 mcg tablet 75 mcg PO DAILY 02/16/24 venlafaxine 150 mg capsule,extended release 24 hr (Effexor XR) 300 mg PO DAILY 02/16/24 azithromycin 250 mg tablet (Zithromax Z-Александр) See Rx Instructions PO .COMPLEX #6 tabs 02/21/24 dextromethorphan-guaifenesin 30 mg-600 mg tablet extended hr 1 tab PO Q12H PRN cough #14 tabs 02/21/24 Plan Details Progress/Aftercare Plan Details:: Tasia has responded well to treatment as evidenced by Tasia consistently attending IOP sessions and her reduction of DSM-5 scores since admission. Tasia was always attentive and receptive to learning during group and individual sessions. Tasia actively applied coping skills outside of IOP and reports overall her mood is improved and she is functioning better than she was several months ago. Tasia?s overall symptom reduction is 41% since admission with anger decreasing by 33%, depression decreasing by 33%, and anxiety decreasing by 33%. Tasia has increased self-compassion and faced many hard things. Most importantly, Tasia has become more vulnerable, flexible, and confident in her abilities. Tasia will follow up with her outpatient counselor and [facility] for medication management. Strategies for Success:: 1. Opposite action! Continue to break that cycle of anxiety, guilt, and depression by not letting emotions be the only drivers of your bus. 2. Remember that thoughts are thoughts NOT facts! You have power in if you give thoughts the time of day or not. 3. self-care! You deserve to take time for you and you also deserve to face the not so fun self-care like delegating tasks and advocating for yourself 4. Self-compassion! You are human and you will make a mistake?BUT that doesn?t mean you are a failure or not good enough. Remember there are no bad parts! 5. Continue to practice acceptance and remember that it is okay to angry or frustrated, but that doesn't mean you have to be self-critical 6. Practice positive self-talk and keep track of your wins. 7. Remember progress isn?t linear! You may have a setback or bump in the road, but that doesn?t mean you?ve lost all progress. 8. self-reflection and self-awareness. 9. Be understanding with yourself and try to see the whole picture, not just the snapshot. 10. Live in the renee!! Appointments Appointments/Referrals to Other Services:: 1. Cora Hyde at [facility] for medication management. 2. Outpatient therapist for individual counseling 3. IOP aftercare starting on 04/20/24 from 2:00-3:30pm. 4. Women's group through [facility] if you are interested [phone]
--- NOTE | 2024-04-14 09:05 | BH.SGPN.GN ---
Behaviors/Verbalizations/Mental Status: []? Eye contact is good. Motor activity is appropriate. Appearance is casual. Speech is Appropriate. Mood is content. Affect is congruent. Thoughts are linear and logical. No evidence of psychosis. Reviewed daily check in sheet and no reports of suicidal ideations or intent.? Client Response/Progress/Benefit: []? Pt was an active participant in group discussion. Attentive. Shared with the group mental health wins including getting here today despite not really wanting to. Additional win noted as getting several tasks done around the house. Stressor noted as continuing to maintain the progress she made in IOP tx following d/c today. Progress noted and pt spent time reflecting on areas of personal growth. Benefited from group support, encouragement, and feedback. Will continue in outpatient therapy as pt is to d/c from IOP tx to prevent decompensation and maintain gains.? Narrative Note: []
--- NOTE | 2024-04-14 10:38 | BH.DS ---
Discharge Summary Demographics Date of Admission:: 02/10/24 Discharge Date: 04/14/24 Presenting Problems at Admission:: Pt is a 53 year-old female with a history of MDD and CHRISTEN who was referred to [facility] by her outpatient psychotherapist social worker at [facility] for worsening depression. Pt reports her symptoms have been worsening for the past five years due to conflicts within her marriage. Pt feels like I have no freedom to be me and she reports having regret daily. At admission, pt endorses a depressed mood, crying spells, ruminations, erratic appetite, low energy, low motivation, hopelessness, and worthlessness. Pt also endorses thoughts of with passive SI and isolation. Pt's symptoms have been impacting her ability to function at her baseline. Discharge Diagnoses:: Major depressive disorder, recurrent, severe without psychosis F 33.2; Generalized anxiety disorder Reason for Discharge:: Pt has accomplished her tx goals AEB her reduction of DMS-5 symptoms, her self-report of improved functioning and mood, and improved view of self. Pt no longer meets criteria for [facility] level of care and will discharge to outpatient counseling. Treatment Progress During Treatment & Response: Pt has responded well to treatment as evidenced by Pt consistently attending IOP sessions and her reduction of DSM-5 scores since admission. Pt was always attentive and receptive to learning during group and individual sessions. Pt actively applied coping skills outside of [facility] and reports overall her mood is improved and she is functioning better than she was several months ago. Pt?s overall symptom reduction is 41% since admission with anger decreasing by 33%, depression decreasing by 33%, and anxiety decreasing by 33%. Pt has increased self-compassion and faced many hard things. Most importantly, Pt has become more vulnerable, flexible, and confident in her abilities. Pt will follow up with her outpatient counselor and [facility] for medication management. Issues Still to be Addressed:: Marital stress, self-confidence, and self-care. Discharge Recommendations/Instructions:: Pt will follow up with her outpatient providers for counseling and medication management. Pt has an outpatient therapist in [place] she sees once a month. Pt sees Cora Hyde at [facility] for medication management and was last seen in February. Pt stated she will be seen again in August. Pt will begin [facility] aftercare on 04/27/24. Discharge Handout
--- NOTE | 2024-04-14 11:10 | BH.SGPN.GN ---
Behaviors/Verbalizations/Mental Status: [] Pt alert and oriented, casually dressed and groomed. Eye contact good. Motor activity appropriate. Speech within normal limits. Affect congruent, mood euthymic, Thoughts linear, logical, no signs of hallucinations or delusions. Client Response/Progress/Benefit: [] Pt was an attentive participant in group discussions and actively engaged during experiential activity, doing well to regulate their emotions throughout the activity and work with peers. Attentive during psychoeducation on the 4 A's (Avoid, adapt, alter, accept) of coping with stress. Shared that they would benefit from adapting approach of living with the situation and do well as possible. Was able to identify the connection between the experiential activity and utilization of stress management skills. Benefited from increased awareness of stress management strategies. Pt will discharge successfully from [facility]. Narrative Note: []
--- NOTE | 2024-04-14 13:42 | BH.MDN ---
Multi-Disciplinary Note Note 30-min Individual: Time Started:: 10:40 Date: 04/14/24 Purpose of session/treatment goals addressed:: To address current stressors and discuss strategies to help cope with these stressors. Another goal was to discuss discharge and aftercare. Eye Contact:: Good Motor Activity:: Appropriate Appearance:: Neat Speech:: Appropriate Mood:: Euthymic and Anxious Affect:: Full Thoughts:: Linear, Logical and No evidence of hallucinations/delusions noted Staff Interventions:: discharge planning, strengths perspective and reviewed DSM-5 Client Response:: Pt responded well to session, open to meeting with therapist to close out treatment. Pt reflected on her progress and we discussed pt's reduction in scores. Pt reports feeling like she made progress with setting boundaries and being more confident. Pt also stated she enjoyed the group setting which was surprising to pt. Pt shared we were all in the same boat. Pt stated her marriage is still a stressor, but pt is continuing to focus on what is in her control and not letting her 's mood impact her. Pt reviewed coping skills including opposite action, setting small goals, changing habits, and positive self-talk. Pt plans to participate in IOP aftercare group, but pt can not attend every week. Pt shared she also plans to call her outpatient therapist to schedule for next week. Risks/Concerns:: Pt denies any suicidal ideations, plan, or intent. Pt denies any thoughts of . Progress Toward Goals/Plan:: Pt will discharge from IOP tx today as she has accomplished her tx goals and no longer meets criteria for IOP level of care. Pt's overall symptom reduction is 41% since admission with anger decreasing by 33%, depression decreasing by 33%, and anxiety decreasing by 33%. Pt will transition to outpatient counseling and IOP aftercare. Time Stopped:: 11:05
== END 2024-04-14 13:14 | disposition home or self-care (01) ==
LOC: BHIOP 09:00
PROVIDERS: PCP Nurse Practitioner Family; Referring Provider Psychiatry & Neurology Psychiatry; Visit Provider Psychiatry & Neurology Psychiatry
DX: F33.2 Major depressive disorder, recurrent severe without psychotic features (principal); F41.1 Generalized anxiety disorder
CPT/HCPCS: S9480; 90832; 90853